=== PATIENT | female | born 1995 | race Caucasian/White ===

== ENCOUNTER 2021-01-10 09:16 | Emergency (ER) | payer OTHER ==
[~2021-01-10 09:16] MED LIST: CIPRO500 MG PO; ETODOLAC500 MG PO
[2021-01-10 10:01] LABS: BASOPHIL 0.6 % (0-2); EOSINOPHIL 1.3 % (0-5); HCT 41.8 % (37.0-47.0); HGB 14.1 g/dl (12.5-16.0); LYMPHOCYTE 36.4 % (15-48); MCH 31.4 pg (25.0-31.0); MCHC 33.7 g/dL (32.0-36.0); MCV 93.1 fL (78.0-100.0); MONOCYTE 7.6 % (0-12); NEUTROPHIL 53.8 % (41-80); NRBC 0; PLT 350 K/uL (150-400); RBC 4.49 M/uL (4.20-5.40); RDW 12.4 % (11.5-14.0); WBC 12.7 K/uL (4.0-10.5)
[2021-01-10 10:03] LABS: BILIRUBIN NEGATIVE (NEGATIVE); BLOOD 3+ Ery/uL (NEGATIVE); CLARITY CLEAR (CLEAR); COLOR YELLOW (YELLOW); GLUCOSE (U) NORMAL (NORMAL); LEUKOCYTES NEGATIVE Leu/uL (NEGATIVE); NITRITE NEGATIVE (NEGATIVE); PROTEIN TRACE (LOW) mg/dL (NEGATIVE); SPECIFIC GRAVITY >=1.030 (1.001-1.030); UROBILINOGEN 0.2 mg/dL (0.2-1.0)
[2021-01-10 10:11] LABS: URINARY RBC TNTC
[2021-01-10 10:13] LABS: BACTERIA TRACE; URINARY WBC RARE
[2021-01-10 10:47] LABS: ALBUMIN 3.7 g/dL (3.4-5.0); BILIRUBIN - TOTAL 0.3 mg/dL (0.2-1.0); BUN/CREAT RATIO (CALC) 13.6 RATIO; CREATININE 0.81 mg/dL (0.51-0.95); GLOBULIN (CALCULATION) 3.7 g/dL; POTASSIUM 3.8 mmol/L (3.5-5.1); TOTAL PROTEIN 7.4 g/dL (6.4-8.2)
[2021-01-10] MEDS ORDERED: NORCO 5-325 TA1 EACH PO (11:50)
[2021-01-10] MEDS ORDERED: ONDANSETRON ODT4 MG PO (11:50)
== END 2021-01-10 12:31 | disposition home or self-care (01) ==
LOC: FER 09:16
PROVIDERS: Emergency Medicine
DX: N13.2 Hydronephrosis with renal and ureteral calculous obstruction (principal); F17.200 Nicotine dependence, unspecified, uncomplicated; Z90.49 Acquired absence of other specified parts of digestive tract
CPT/HCPCS: 36415; 80053; 81001; 85025; J1170; J1885; J2270; J2405; J7030